=== PATIENT | female | born 1980 | race Caucasian/White ===

== ENCOUNTER 2019-04-24 06:10 | Day surgery (SDC) | payer OTHER ==
[2019-04-24] MEDS ORDERED: LIDOCAINE 2% (SDV) 5 ML INJ (07:56)
[2019-04-24] MEDS ORDERED: PROPOFOL 60 ML (07:56)
== END 2019-04-24 11:39 | disposition home or self-care (01) ==
LOC: GIL 06:10
DX: R19.5 Other fecal abnormalities (principal); K64.4 Residual hemorrhoidal skin tags; K31.7 Polyp of stomach and duodenum; E11.9 Type 2 diabetes mellitus without complications; I10 Essential (primary) hypertension; Z79.82 Long term (current) use of aspirin; Z79.84 Long term (current) use of oral hypoglycemic drugs
CPT/HCPCS: 43239; 82962; 84703; 88305; 88312